=== PATIENT | male | born 1980 | race Caucasian/White ===

== ENCOUNTER 2016-11-27 20:57 | Inpatient (IN) | payer BC ==
[~2016-11-27] VITALS: Ht 170.2 cm; Wt 77.4 kg
[~2016-11-27 20:57] MED LIST: AZMACORT INH; EPIN0.3P3 SQ; HYDR-3989 PO; IBUP-1724 PO
--- OUTSIDE RECORDS SUMMARY | 2016-11-27 21:01 | XMS REPORT | Continuity of Care Document ---
Author Author [facility] Organization [facility] Address Unknown Phone Unavailable Support Name Relationship Address Phone JENNIFER GAONA APRN Caregiver [address] [place] [address] Unavailable JORGE PRESLEY MD Caregiver [address] [place] [address] Unavailable CLIVE AMBRIZ Next Of Kin [address] [place] [address] CP Insurance Providers Guarantor Devon Ambriz Address [address] [place] [address] CP Email [email or web address] Payer [employer] Other Policy Number [id number] Subscriber's Name Devon Ambriz Relationship 18 Self Group Number [id number] Problems Active Problems Medical Problem Onset Date Status Allergic reaction Unknown Acute Allergic reaction Unknown Acute Puncture wound of forearm with foreign body Unknown Acute Past Problems Medical Problem Onset Date Asthmatic bronchitis with acute exacerbation Unknown Foot pain, right Unknown Medications Current Home Medications Medication Dose Units Route Directions Days Qty Instructions Start Date Acetaminophen/Hydrocodone Bitart (Braman 5-325 Tablet) 5-325 Tablet 1 Tab Oral Every 6-8 Hours Prn as needed for Pain 2 Days [address] Adrian Cortés Web [employer] [facility] [address] [phone] 09/19/16 [place] 1 Puff Inhalation Daily 05/03/16 Epinephrine (Epipen 2-Garrett) 0.3 Mg/0.3 Ml Auto.injct 1 Unit Sub-Q Asd 03/08/16 Ibuprofen 200 Mg Tablet 1 Tab Oral Every 4 Hours as needed for Pain 09/19/16 Social History Social History Problem Response Recorded Date/Time Onset Date Status Hx Substance Use No 05/03/2016 7:30pm Not Applicable Not Applicable Hx Alcohol Use Y SOCIALLY 05/03/2016 7:30pm Not Applicable Not Applicable Has the pt used tobacco in the last 12 months Yes 03/10/2016 8:38am Not Applicable Not Applicable Tobacco Usage smoke 09/20/2014 3:43pm Not Applicable Not Applicable Query Response Start Date Stop Date Smoking Status Current every day smoker Hospital Discharge Instructions Current inpatient/outpatient. Discharge instructions are currently unavailable. Plan of Care Current inpatient/outpatient. The plan of care is currently unavailable Functional Status No functional status results. Allergies, Adverse Reactions, Alerts Allergen Type Severity Reaction Status Last Updated Penicillin Allergy Unknown Active 09/19/16 Immunizations Query Response on File Recorded Date/Time Hx Influenza Vaccination No 03/10/16 8:38am Hx Pneumococcal Vaccination No 03/10/16 8:38am Hx Tetanus, Diptheria, Pertussis Yes 09/20/14 3:49pm Hx Influenza Vaccination No 03/10/16 8:38am Hx Tetanus, Diptheria, Pertussis Yes 09/20/14 3:49pm Vital Signs Acute Vital Signs Vital Response Date/Time Temperature (Fahrenheit) 97.8 deg F (96.8 - 99.1) 09/19/2016 10:35am Temperature (Calculated Celsius) 36.31235 degrees C (36.0 - 37.3) 09/19/2016 10:35am Pulse Rate (adult) 78 bpm (60 - 100) 09/19/2016 10:35am Respiratory Rate 16 breaths/min (10 - 20) 09/19/2016 10:35am O2 Sat by Pulse Oximetry 96 % (90 - 100) 09/19/2016 10:35am Blood Pressure 122/72 mm Hg 09/19/2016 10:35am Height (Inches) 68.00 inches 09/19/2016 10:35am Weight (Kilograms) 79.900 kg 09/19/2016 10:35am Body Mass Index (BMI) 26.0 09/19/2016 10:35am Results No known relevant diagnostic tests, laboratory data and/or discharge summary. Procedures No known history of procedures. Encounters Encounter Location Arrival/Admit Date Discharge/Depart Date Attending Provider Registered Clinic [facility] 09/19/16 11:16am JENNIFER GAONA APRN Departed Emergency Room [facility] 09/19/16 10:27am 09/19/16 11: 01am JENNIFER GAONA APRN Departed Emergency Room [facility] 06/27/16 5:19pm 06/27/16 5: 40pm JENNIFER GAONA APRN
--- OUTSIDE RECORDS SUMMARY | 2016-11-27 21:01 | XMS REPORT | Continuity of Care Document ---
Author Author [facility] Organization [facility] Address Unknown Phone Unavailable Support Name Relationship Address Phone RAVI KIRKLAND MD Caregiver [facility] [address] [place] [address] Unavailable JORGE PRESLEY MD Caregiver [address] [place] [address] [phone] CLIVE AMBRIZ Next Of Kin [address] [place] [address] CP Insurance Providers Payer Name Policy Number Subscriber Name Relationship [employer] Other [id number] Devon Ambriz 01 Spouse Advance Directives Directive Response Recorded Date/Time Advanced Directives Type None 09/20/14 3:18pm Problems Medical Problems Problem Onset Date Status Puncture wound of forearm with foreign body Unknown Active Allergic reaction Unknown Active Allergic reaction Unknown Active Medications Medication Dose Route Sig Days/Qty Instructions Order Date Discontinued Date Status Cephalexin Monohydrate 500 Mg PO THREE TIMES A DAY 30 Qty 01/26/14 Active Hydrocodone Bit/Acetaminophen 1 Udtab PO FOUR TIMES DAILY For PAIN 30 Qty 01/26/14 Active Ranitidine HCl 150 Mg PO TWICE A DAY 30 Qty 09/20/14 Active Prednisone 10 Mg PO NOTE INSTRUCTIONS 30 Qty 4 daily x 3 days, 3 daily x3 days, 2 daily x 3 days, 1 daily 09/20/14 Active Azithromycin 250 Mg PO NOTE INSTRUCTIONS 6 Qty 09/20/14 Active Social History Social History Problem Response Recorded Date/Time Hx Alcohol Use Y WEEKLY 09/20/2014 3:49pm Tobacco Usage smoke 09/20/2014 3:43pm Query Response Start Date Stop Date Smoking Status Current every day smoker Hospital Discharge Instructions No hospital discharge instructions. Plan of Care No plan of care. Functional Status Query Response Date Recorded Physical Hygiene Self September 20, 2014 3:49pm Disabilities None September 20, 2014 3:49pm Devices Used None September 20, 2014 3:49pm Dressing Self September 20, 2014 3:49pm Ambulation Self September 20, 2014 3:49pm Diet Self September 20, 2014 3:49pm Mental Status Alert September 20, 2014 4:39pm Disabilities None September 20, 2014 3:49pm Devices Used None September 20, 2014 3:49pm Physical Hygiene Self September 20, 2014 3:49pm Dressing Self September 20, 2014 3:49pm Ambulation Self September 20, 2014 3:49pm Diet Self September 20, 2014 3:49pm Allergies, Adverse Reactions, Alerts Allergen Type Severity Reaction Status Last Updated No Known Allergies Active 09/20/14 Immunizations Name Given Type Hx Influenza Vaccination No Historical Hx Tetanus, Diptheria, Pertussis Yes Historical Hx Influenza Vaccination No Historical Hx Tetanus, Diptheria, Pertussis Yes Historical Vital Signs Acute Vital Signs Vital Response Date/Time Temperature (Fahrenheit) 97.4 deg F (96.8 - 99.1) Temperature (Calculated Celsius) 36.59180 degrees C (36.0 - 37.3) Pulse Rate (adult) 78 bpm (60 - 100) Respiratory Rate 20 breaths/min (10 - 20) O2 Sat by Pulse Oximetry 97 % (90 - 100) Blood Pressure 120/81 mm Hg Height 5 ft 7 in Weight 175 lb Body Mass Index 27.0 kg/m^2 Results No known relevant diagnostic tests, laboratory data and/or discharge summary. Procedures No known history of procedures. Encounters Encounter Location Date/Time Departed Emergency Room [facility] 09/20/14 3:15pm Recent Diagnosis
--- OUTSIDE RECORDS SUMMARY | 2016-11-27 21:01 | XMS REPORT | Continuity of Care Document ---
Author Author [facility] Organization [facility] Address Unknown Phone Unavailable Allergies Medications Problems Procedures Results Encounters ACCT No. Visit Date/Time Discharge Status Pt. Type Provider Facility Loc./Unit Complaint [id number] 12/09/2013 17:40:00 12/09/2013 23 :59:59 CLS Outpatient
[2016-11-27] MEDS ORDERED: [UNRECOGNIZED DRUG - CODE] PO (21:25)
[2016-11-27] MEDS ORDERED: ONDANSETRON 4mg/2ml INJECTION IV ONE (21:30)
[2016-11-27] MEDS ORDERED: NORMAL SALINE 1,000 ML IV ONE (21:30)
[2016-11-27] MEDS ORDERED: HYDROMORPHONE 2mg/ml INJECTION IV ONE ×2 (21:30→23:15)
[2016-11-27] MEDS ORDERED: IOHEXOL 300 MG/ML 100ml INJECTION ONE (21:34)
[2016-11-27] MEDS ORDERED: NORMAL SALINE 100 ML ONE (21:34)
[2016-11-27] MEDS ORDERED: SALINE FLUSH 10ml SYRINGE ONE (21:34)
--- NOTE | 2016-11-27 21:36 | ERPDOC ---
Departure Disposition Decision Date: Nov 27, 2016 Disposition Decision Time: 23:30 Disposition: 02 TO OBS [facility] Impression Impression Impression: Primary Impression: Pancreatitis Chronicity: acute Pancreatitis type: unspecified pancreatitis type Acute pancreatitis complication: no infection or necrosis Qualified Codes: K85.90 - Acute pancreatitis without necrosis or infection, unspecified Severity: Moderate Condition: Stable Seen By: Mid-level only Referrals: JORGE PRESLEY MD (Family) Problems/Meds/Labs Reviewed?: Yes Medications reviewed and manag: Yes Follow up care ordered?: Yes Mental Status: Alert HPI - Abdominal Pain General Chief Complaint: Abdominal Pain Stated Complaint: ABD PAIN, BACK PAIN Time Seen by Provider: 21:21 Source: patient History/Exam Limitations: no limitations HPI - Abdominal Pain Initial Comments He had onset of abdominal pain today around noon. It got much worse around 1600 and now he is having a hard time laying still due to the pain. Has never had pain like this in the past. Has not had any fever/chills or vomiting today. Has had 2 BM at home. Did not take anything for the pain at home prior to coming to ER. Occurred At: home Onset: Rapid Duration: 6-12 hrs (at noon today, 9 hours ago) Quality: sharpness Location: periumbilical, suprapubic Radiation: no radiation 1 - area of abdominal pain Associated Symptoms: back pain, DENIES: chest pain, diaphoresis, fatigue, fever /chills, heartburn, nausea/vomiting, rash, shortness of breath, swelling/mass in abdomen, syncope, weakness Hx of Similar Symptoms: No Allergies: Coded Allergies: Penicillins (Unverified Allergy, Unknown, 09/19/16) Past History Past Medical History Respiratory: asthma Surgical History Denies Surgeries Family History Family History: Negative Vaccines Hx Influenza Vaccination: No Hx Pneumococcal Vaccination: No Hx Tetanus, Diptheria, Pertuss: Yes Social History Does patient use chewing tobac: No # of Packs/Tins per Day: 0.5 # of Years: 7 Second Hand Exposure: No Substance Use Type: does not use Alcohol Intake: Does not drink Review of Systems Constitutional Constitutional: DENIES: chills, dizziness, fatigue, fever, weakness Cardiovascular Cardiac: DENIES: chest pain, orthopnea Rhythm/Rate: DENIES: irregular beat, palpitations Pulmonary Respiratory: DENIES: cough, dyspnea, sputum, tachypnea GI Upper Abdomen: pain, DENIES: nausea, vomiting Lower Abdomen: pain, DENIES: constipation, diarrhea General: DENIES: dysuria, frequency, urgency Integumentary Skin: DENIES: rash Neurological General: DENIES: headache, numbness, tingling, weakness Physical Exam General General Nourishment: well nourished, well developed, appears stated age, no acute distress, adult General Body Habitus: well groomed Vitals and Pain First Documented Vital Signs Date Time Temp Pulse Resp B/P Pulse Ox O2 Delivery O2 Flow Rate FiO2 11/27/16 21:09 98.2 76 20 144/96 98 Room Air Weight: Kilograms: 75.200 Height (feet): 5 Height (inches): 7.00 Triage Pain Scale: RN VS reviewed by Provider: Yes Normal Exams: Neck: Full range of motion, without adenopathy, JVD, bruits or thyromegaly Chest/Resp: Clear all ramos, with good airflow, and symmetry bilaterally CV: Regular rate and rhythm, without murmur or gallop, Pulses 2+ all extremities, capillary refill, <2 seconds all ext., no pedal edema noted Abdomen: Bowel sounds positive, non-distended, no hepatosplenomegaly, masses or bruits noted Lymphatic: No lymphadenopathy, or lymphedema noted Integumentary: No rashes, hives, or bruising noted Neurologic: Patient is alert, and oriented Psychiatric: Patient exhibits, appropriate attention, emotion and affect Abdomen Inspection: NOT FOUND: distention Palpation: FOUND: soft, tender (TTP in all quadrants of the abdomen with light touch), voluntary guarding, NOT FOUND: involuntary guarding, rebound Differential Diagnoses Considering: Appendicitis, Aortic Dissection, Biliary Colic, Bowel Obstruction , Cholecystitis, Constipation, Crohn's, Hepatitis, Pancreatitis, UTI Progress Results/Orders Orders Procedure Category Date Status Time Cbc W/Auto LAB 11/27/16 Complete Diff-Reflex Manual Cmp - Comprehensive LAB 11/27/16 Complete Metabolic Lipase LAB 11/27/16 Complete Iv Lock (Ed Only) EDM 11/27/16 Transmitted 21:23 Ct Abd/Pelvis CT 11/27/16 Taken W/Contrast Only 21:23 Normal Saline (Normal PHA 11/27/16 Complete Saline Iv) 21:30 Hydromorphone PHA 3/19/17 Complete (Dilaudid) 21:30 Ondansetron Inj PHA 11/27/16 Complete (Zofran) 21:30 Iohexol (Omnipaque) PHA 11/27/16 Complete 21:34 Normal Saline (Ns) PHA 11/27/16 Complete 21:34 Saline Flush (Iv PHA 11/27/16 Complete Flush) 21:34 Hydromorphone PHA 11/27/16 Complete (Dilaudid) 23:15 Lab Results Laboratory Tests Test 11/27/16 21:29 White Blood Count 13.1T/MM3 Red Blood Count 5.34M/MM3 Hemoglobin 16.0GM/DL Hematocrit 45.6% Mean Corpuscular Volume 85.4UM3 Mean Corpuscular Hemoglobin 30.0UUG Mean Corpuscular Hemoglobin Concent 35.1GM/DL RDW Standard Deviation 40.9FL Platelet Count 189T/MM3 Mean Platelet Volume 10.7UM3 Immature Granulocyte % (Auto) 0.3% Neutrophils (%) (Auto) 75.2% Lymphocytes (%) (Auto) 18.2% Monocytes (%) (Auto) 5.7% Eosinophils (%) (Auto) 0.4% Basophils (%) (Auto) 0.2% Absolute Immature Granulocyte (auto 0.04T/MM3 Absolute Neutrophils (auto) 9.8T/MM3 Absolute Lymphocytes (auto) 2.4T/MM3 Absolute Monocytes (auto) 0.8T/MM3 Absolute Eosinophils (auto) 0.1T/MM3 Absolute Basophils (auto) 0.0T/MM3 Turbidity < 20 Sodium Level 145MEQ/L Potassium Level 4.1MEQ/L Chloride Level 106MEQ/L Carbon Dioxide Level 26MEQ/L Anion Gap 13MEQ/L Blood Urea Nitrogen 10.0MG/DL Creatinine 1.0MG/DL Glomerular Filtration Rate Calc 85 BUN/Creatinine Ratio 10RATIO Glucose Level 123MG/DL Calculated Osmolality 279MOSM/KG Calcium Level 9.2MG/DL Total Bilirubin 0.70MG/DL Icterus Index < 2 Aspartate Amino Transf (AST/SGOT) 22U/L Alanine Aminotransferase (ALT/SGPT) 46U/L Alkaline Phosphatase 54U/L Total Protein 7.4G/DL Albumin 4.2G/DL Globulin 3.2G/DL Albumin/Globulin Ratio 1.3RATIO Lipase 3719U/L Chemistry Specimen Hemolysis < 15 Medications Current ED Medications Sodium Chloride (Normal Saline IV) 1,000 ml @ 1,000 mls/hr Q1H ONCE IV Last administered on 11/27/16 21:40; Start 11/27/16 at 21:30; Stop 11/27/16 at 22:29 ; Status DC Hydromorphone HCl (Dilaudid) 0.5 mg O ONCE IV Last administered on 11/27/16 21:40; Start 11/27/16 at 21:30; Stop 11/27/16 at 21:31; Status DC Ondansetron HCl (Zofran) 4 mg O ONCE IV Last administered on 11/27/16 21:40; Start 11/27/16 at 21:30; Stop 11/27/16 at 21:31; Status DC Iohexol 1 bottle 1 bottle STK-MED ONCE .ROUTE ; Start 11/27/16 at 21:34; Stop at 21:35; Status DC Sodium Chloride (NS) 100 ml @ As Directed STK-MED ONCE .ROUTE ; Start 11/27/16 at 21:34; Stop 11/27/16 at 21:35; Status DC Sodium Chloride (Iv Flush) 10 ml STK-MED ONCE .ROUTE ; Start 11/27/16 at 21:34; Stop 11/27/16 at 21:35; Status DC Hydromorphone HCl (Dilaudid) 0.5 mg O ONCE IV ; Start 11/27/16 at 23:15; Stop 11/27/16 at 23:16; Status DC Progress Progress WBC is 13.1 with 75 neutrophils. CMP is normal but lipase today is 3719. He denies any ETOH consumption and does still have his gallbladder. CT scan findings are consistent with pancreatitis but does not show any gallstones present. Discussed findings with Dr Sexton. He will admit OBS at this time. CT CT : Reason for Exam: abdominal pain CT: Abd/Pelvis IV contrast Interpretation: Abnormal (acute pancreatitis) MONROE FOWLER APRN Nov 27, 2016 21:36
[2016-11-27 21:44] LABS: BASOPHILS % (AUTO) 0.2 % (0-2); EOSINOPHILS # (AUTO) 0.1 T/MM3 (0-0.5); EOSINOPHILS % (AUTO) 0.4 % (0-4); HCT - HEMATOCRIT 45.6 % (41-53); IMMATURE GRANULOCYTE # (AUTO) 0.04 T/MM3 (0.00-0.03); IMMATURE GRANULOCYTE % (AUTO) 0.3 % (0.0-0.5); LYMPHOCYTES # (AUTO) 2.4 T/MM3 (1-4.8); LYMPHOCYTES % (AUTO) 18.2 % (23-45); MEAN CORPUSCULAR HGB CONC(MCHC 35.1 GM/DL (31-37); MEAN CORPUSCULAR VOLUME 85.4 UM3 (80-100); MEAN PLATELET VOLUME 10.7 UM3 (9.4-12.4); MONOCYTES # (AUTO) 0.8 T/MM3 (0-0.8); MONOCYTES % (AUTO) 5.7 % (0-9.0); NEUTROPHILS #(AUTO)-ABSOLUTE 9.8 T/MM3 (1.8-7.7); NEUTROPHILS % (AUTO) 75.2 % (33-66); RED BLOOD COUNT 5.34 M/MM3 (4.50-5.90); WBC - WHITE BLOOD COUNT 13.1 T/MM3 (4.5-11.0)
[2016-11-27 21:48] LABS: ALBUMIN 4.2 G/DL (3.5-5.0); ALBUMIN/GLOBULIN RATIO 1.3 RATIO (1.1-2.2); ALKALINE PHOSPHATASE 54 U/L (38-126); ALT (SGPT) 46 U/L (21-72); ANION GAP 13 MEQ/L (5-15); AST (SGOT) 22 U/L (17-59); BUN/CREATININE RATIO 10 RATIO (6-26); CALCIUM 9.2 MG/DL (8.4-10.2); CHLORIDE 106 MEQ/L (98-107); CO2 - CARBON DIOXIDE 26 MEQ/L (22-30); GLOMERULAR FILTRATION RATE 85; GLUCOSE 123 MG/DL (75-110); POTASSIUM 4.1 MEQ/L (3.6-5); SODIUM 145 MEQ/L (134-144); TOTAL PROTEIN 7.4 G/DL (6.3-8.2)
[2016-11-27 21:55] LABS: LIPASE 3719 U/L (23-300)
--- NOTE | 2016-11-27 22:07 | NUR ---
IMAGING PT TO IMAGING VIA CART AT THIS TIME
--- NOTE | 2016-11-27 22:18 | NUR ---
IMAGING PT RETURN TO ROOM VIA CART FROM IMAGING
--- OUTSIDE RECORDS SUMMARY | 2016-11-27 23:08 | XMS REPORT | Continuity of Care Document ---
Author Author [facility] Organization [facility] Address Unknown Phone Unavailable Allergies Medications Problems Procedures Results Encounters ACCT No. Visit Date/Time Discharge Status Pt. Type Provider Facility Loc./Unit Complaint [id number] 12/09/2013 17:40:00 12/09/2013 23 :59:59 CLS Outpatient
--- OUTSIDE RECORDS SUMMARY | 2016-11-27 23:08 | XMS REPORT | Continuity of Care Document ---
Author Author [facility] Organization [facility] Address Unknown Phone Unavailable Support Name Relationship Address Phone RAVI KIRKLAND MD Caregiver [facility] [address] [place] [address] Unavailable JORGE PRESLEY MD Caregiver [address] [place] [address] [phone] CLIVE AMBRIZ Next Of Kin [address] [place] [address] CP Insurance Providers Payer Name Policy Number Subscriber Name Relationship [employer] Other [id number] Devon Ambriz 01 Spouse Advance Directives Directive [...] F (96.8 - 99.1) Temperature (Calculated Celsius) 36.18539 degrees C (36.0 - 37.3) Pulse Rate [...] Encounters Encounter Location Date/Time Departed Emergency Room [facility] 09/20/14 3:15pm Recent Diagnosis
[2016-11-27] MEDS ORDERED: METOCLOPRAMIDE 10mg/2ml INJECTION IV PRN (23:30)
[2016-11-27] MEDS ORDERED: ONDANSETRON 4mg/2ml INJECTION IV PRN (23:30)
[2016-11-27] MEDS ORDERED: PROMETHAZINE 25 MG INJECTION IV PRN (23:30)
--- OUTSIDE RECORDS SUMMARY | 2016-11-27 23:41 | XMS REPORT | Continuity of Care Document ---
Author Author [facility] Organization [facility] Address Unknown Phone Unavailable Allergies Medications Problems Procedures Results Encounters ACCT No. Visit Date/Time Discharge Status Pt. Type Provider Facility Loc./Unit Complaint [id number] 12/09/2013 17:40:00 12/09/2013 23 :59:59 CLS Outpatient
--- OUTSIDE RECORDS SUMMARY | 2016-11-27 23:41 | XMS REPORT | Continuity of Care Document ---
Author Author [facility] Organization [facility] Address Unknown Phone Unavailable Support Name Relationship Address Phone RAVI KIRKLAND MD Caregiver [facility] [address] [place] [address] Unavailable JORGE PRESLEY MD Caregiver [address] [place] [address] [phone] CLIVE AMBRIZ Next Of Kin [address] [place] [address] CP Insurance Providers Payer Name Policy Number Subscriber Name Relationship [employer] Other [id number] Devon Ambriz 01 Spouse Advance Directives Directive [...] F (96.8 - 99.1) Temperature (Calculated Celsius) 36.96008 degrees C (36.0 - 37.3) Pulse Rate [...] Encounters Encounter Location Date/Time Departed Emergency Room [facility] 09/20/14 3:15pm Recent Diagnosis
[2016-11-28] VITALS (9 sets, daily range): BP systolic 109–126; BP diastolic 67–80; PULSE 58–76; RESP 12–65; TEMP 97.3–97.8; O2SAT 94–97; Ht 170.2 cm; Wt 77.4 kg
--- NOTE | 2016-11-28 00:05 | NUR ---
ADMITION PT ADINITED TO ROOM 158. BROUGHT TO ROOM VIA WHEELCHAIR. AT BEDSIDE.
--- NOTE | 2016-11-28 00:05 | NUR ---
ADMIT PT TO MEDICAL UNIT #[id number] VIA WHEEL CHAIR. REPORT PREVIOUSLY GIVEN TO DEANGELO KANG. RN TO ASSUME CARE IN ROOM WAITING FOR PT. PT TRANSFERRED FROM WHEEL CHAIR TO BED INDEPENDENTLY. GAIT STABLE, NO SIGN OF DISTRESS. AT SIDE.
[2016-11-28] MEDS: NORMAL SALINE 1,000 ML IV SCH ×5 (00:34→23:40)
[2016-11-28] MEDS: HYDROMORPHONE 2mg/ml INJECTION IV PRN ×8 (01:20→21:19)
--- NOTE | 2016-11-28 03:47 | NUR ---
PT IS ALERT AND ORIENTED. REPORTS PAIN 10/10 IN THE ABDOMEN, DILAUDID GIVEN AND EFFECTIVE . PT CURRENTLY SLEEPING. ABDOMEN NOT DISTENDED. VSS
[2016-11-28 05:55] LABS: BASOPHILS % (AUTO) 0.1 % (0-2); EOSINOPHILS # (AUTO) 0.1 T/MM3 (0-0.5); EOSINOPHILS % (AUTO) 1.2 % (0-4); HCT - HEMATOCRIT 44.8 % (41-53); HGB - HEMOGLOBIN 15.2 GM/DL (13.5-17.5); IMMATURE GRANULOCYTE # (AUTO) 0.02 T/MM3 (0.00-0.03); IMMATURE GRANULOCYTE % (AUTO) 0.2 % (0.0-0.5); LYMPHOCYTES # (AUTO) 2.1 T/MM3 (1-4.8); MEAN CORPUSCULAR HGB 29.3 UUG (26-34); MEAN CORPUSCULAR HGB CONC(MCHC 33.9 GM/DL (31-37); MEAN CORPUSCULAR VOLUME 86.5 UM3 (80-100); MEAN PLATELET VOLUME 10.6 UM3 (9.4-12.4); MONOCYTES # (AUTO) 0.7 T/MM3 (0-0.8); MONOCYTES % (AUTO) 6.2 % (0-9.0); NEUTROPHILS #(AUTO)-ABSOLUTE 8.7 T/MM3 (1.8-7.7); NEUTROPHILS % (AUTO) 74.3 % (33-66); RED BLOOD COUNT 5.18 M/MM3 (4.50-5.90); WBC - WHITE BLOOD COUNT 11.7 T/MM3 (4.5-11.0)
[2016-11-28 06:07] LABS: ALBUMIN 3.5 G/DL (3.5-5.0); ALBUMIN/GLOBULIN RATIO 1.3 RATIO (1.1-2.2); ALKALINE PHOSPHATASE 46 U/L (38-126); ALT (SGPT) 37 U/L (21-72); ANION GAP 10 MEQ/L (5-15); AST (SGOT) 18 U/L (17-59); BUN/CREATININE RATIO 9 RATIO (6-26); CALCIUM 8.2 MG/DL (8.4-10.2); CHLORIDE 107 MEQ/L (98-107); CO2 - CARBON DIOXIDE 27 MEQ/L (22-30); CREATININE 0.8 MG/DL (0.8-1.5); GLOMERULAR FILTRATION RATE 109; GLUCOSE 117 MG/DL (75-110); LIPASE 1814 U/L (23-300); POTASSIUM 4.1 MEQ/L (3.6-5); SODIUM 144 MEQ/L (134-144); TOTAL PROTEIN 6.1 G/DL (6.3-8.2)
--- NOTE | 2016-11-28 06:55 | HPPDOC ---
ESTELA GUERRIER MD 11/28/16 0652: HPI - Adult Date DATE: 11/28/16 TIME: 06:49 General Chief Complaint: abd pain History of Present Illness Very pleasant 36-year-old white male presents to the emergency room due to abdominal pain. It started around noon on November 27. He denies any recent illness, denies any on dietary discretion is any denies any alcohol use at all. His pain waxed and waned throughout the day but became increasingly severe to the point that 8 PM it was 10 out of 10. As I'm visiting with him after therapy with IV opioids he is down to a 3/10, he denies fever or chills. He has had a slight amount of vomiting. Recent bowel movements have been normal for him. Past Medical History Past Medical History History of colon polyps as his father has had polyposis , he has mild intermittent asthma. Surgical History Patient's Surgical History: Colonoscopy with polypectomy. Current Medications Home Meds Reported Medications Bismuth Subsalicylate (Kaopectate) 525 Mg/15 Ml Oral.susp, 15 ML PO PRN 11/27/16 Epinephrine (Epipen 2-Garrett) 0.3 Mg/0.3 Ml Auto.injct, 0.3 MG SQ PRN 03/08/16 Allergies: Coded Allergies: Penicillins (Unverified Allergy, Unknown, 11/28/16) Family History Family History: Father has had colon polyposis and had to have a colectomy, his mom and brother are healthy Social History Smoking Status: Current some day smoker ( smokes one half pack per day.) Does patient use chewing tobac: No # of Packs/Tins per Day: 0.5 # of Years: 7 Second Hand Exposure: No Substance Use Type: does not use Alcohol Intake: none, Does not drink, former alcohol drinker Marital Status: Sexuality: female partner Household Members: family, children Current Occupational Status: employed Advance Directives: No DPOA for Healthcare Only Review of Systems All Other Systems All Other Systems: Reviewed (remainder of 10-point ROS Neg.) Physical Exam General General Nourishment: well nourished, well developed, apparent age Vital Signs Vital Signs Date Time Temp Pulse Resp B/P Pulse Ox O2 Delivery O2 Flow Rate FiO2 11/28/16 04:52 97.4 65 18 125/69 97 Room Air Height (Feet): 5 Height (Inches): 7.00 Comments He appears in mild to moderate painful distress Eyes Brief: FOUND: PERRL, NOT FOUND: scleral icterus Respiratory Brief: FOUND: clear all ramos, equal bilaterally Cardiovascular (brief) Cardiac Brief: FOUND: regular rate, regular rhythm, NOT FOUND: pedal edema Abdomen (brief) Abdominal Brief: FOUND: BS normo active x4, soft, tender Comments his abdomen was moderately tender in the epigastric Neurologic RN Documented GCS Eye Opening: Verbal: Motor: Total: Laboratory Laboratory Tests Test 11/27/16 21:29 11/28/16 05:38 11/28/16 05:39 White Blood Count 13.1T/MM3 11.7T/MM3 Red Blood Count 5.34M/MM3 5.18M/MM3 Hemoglobin 16.0GM/DL 15.2GM/DL Hematocrit 45.6% 44.8% Mean Corpuscular Volume 85.4UM3 86.5UM3 Mean Corpuscular Hemoglobin 30.0UUG 29.3UUG Mean Corpuscular Hemoglobin Concent 35.1GM/DL 33.9GM/DL RDW Standard Deviation 40.9FL 41.0FL Platelet Count 189T/MM3 161T/MM3 Mean Platelet Volume 10.7UM3 10.6UM3 Immature Granulocyte % (Auto) 0.3% 0.2% Neutrophils (%) (Auto) 75.2% 74.3% Lymphocytes (%) (Auto) 18.2% 18.0% Monocytes (%) (Auto) 5.7% 6.2% Eosinophils (%) (Auto) 0.4% 1.2% Basophils (%) (Auto) 0.2% 0.1% Absolute Immature Granulocyte (auto 0.04T/MM3 0.02T/MM3 Absolute Neutrophils (auto) 9.8T/MM3 8.7T/MM3 Absolute Lymphocytes (auto) 2.4T/MM3 2.1T/MM3 Absolute Monocytes (auto) 0.8T/MM3 0.7T/MM3 Absolute Eosinophils (auto) 0.1T/MM3 0.1T/MM3 Absolute Basophils (auto) 0.0T/MM3 0.0T/MM3 Turbidity < 20 < 20 Sodium Level 145MEQ/L 144MEQ/L Potassium Level 4.1MEQ/L 4.1MEQ/L Chloride Level 106MEQ/L 107MEQ/L Carbon Dioxide Level 26MEQ/L 27MEQ/L Anion Gap 13MEQ/L 10MEQ/L Blood Urea Nitrogen 10.0MG/DL 7.0MG/DL Creatinine 1.0MG/DL 0.8MG/DL Glomerular Filtration Rate Calc 85 109 BUN/Creatinine Ratio 10RATIO 9RATIO Glucose Level 123MG/DL 117MG/DL Calculated Osmolality 279MOSM/KG 276MOSM/KG Calcium Level 9.2MG/DL 8.2MG/DL Total Bilirubin 0.70MG/DL 0.80MG/DL Icterus Index < 2 < 2 Aspartate Amino Transf (AST/SGOT) 22U/L 18U/L Alanine Aminotransferase (ALT/SGPT) 46U/L 37U/L Alkaline Phosphatase 54U/L 46U/L Total Protein 7.4G/DL 6.1G/DL Albumin 4.2G/DL 3.5G/DL Globulin 3.2G/DL 2.6G/DL Albumin/Globulin Ratio 1.3RATIO 1.3RATIO Lipase 3719U/L 1814U/L Chemistry Specimen Hemolysis < 15 < 15 Alcohol, Quantitative <10MG/DL Glucometer 119mg/dL Radiology to the abdomen showed some peripancreatic edema. Formal report is pending Assessment & Plan Problems: (1) Pancreatitis, acute Status: Acute Qualifiers: Pancreatitis type: unspecified pancreatitis type Assessment & Plan: no clear etiology at this point. Gallbladder sono and MRCP aggressive IV fluids at 250 mils per hour of normal saline. IV opioid therapy as needed. (2) Colon polyps Status: Chronic Code Status Full Code Hospital Course Summary Disclaimer The hospital course summary below is not to be considered part of the above Progress Note. WARD THAYER MD 11/28/16 1428: HPI - Adult General Chief Complaint: abdominal pain History of Present Illness As previously noted Devon is 36-year-old male who developed epigastric and mid abdominal abdominal pain around noon yesterday which persisted and intensified throughout the day. There is no accompanying nausea, vomiting, or diarrhea. He initially tried Pepto-Bismol and later Kaopectate without improvement. As pain intensified he tried inducing vomiting resulting in dry heaves but no improvement symptoms. By 8:00 in the evening pain was intense enough that he was unable to tolerate it at home and he presented to the emergency room. Patient had started to radiate to the low back and generalized to the lower abdomen at that point. IV narcotics in the ER help stabilize pain. He denies preceding fevers or chills and reports no one else at home has been ill. He has no history of gallstones and has had no recent alcohol ingestion indicating that his last beer was more than 6 weeks ago. ER evaluation included CT abdomen and laboratory data consistent with pancreatitis. Past history, family history, social history, and review of systems as noted although patient complains of headache this morning that he attributes to caffeine withdrawal and reports he's recently had some difficulty with urticaria which he believes is due to heat exposure. Past Medical History Current Medications Home Meds Reported Medications Bismuth Subsalicylate (Kaopectate) 525 Mg/15 Ml Oral.susp, 15 ML PO PRN 11/27/16 Epinephrine (Epipen 2-Garrett) 0.3 Mg/0.3 Ml Auto.injct, 0.3 MG SQ PRN 03/08/16 Allergies: Coded Allergies: Penicillins (Unverified Allergy, Unknown, 11/28/16) Assessment & Plan Problems: (1) Pancreatitis, acute Status: Acute Qualifiers: Pancreatitis type: unspecified pancreatitis type (2) Abdominal pain Status: Acute (3) Leukocytosis Status: Acute (4) Headache Status: Acute (5) Colon polyps Status: Chronic (6) Asthma, mild intermittent Onset Date: Unknown Status: Chronic Assessment EXAM General-temperature 97.7, blood pressure 126/74. Patient is alert and cooperative. NAD HEENT-PERRL, EOMI, conjunctiva clear, sclera anicteric, facial structure symmetric, oropharynx clear, neck supple without adenopathy Lungs-respirations nonlabored, good airflow, no wheezing present Cardiac-regular rhythm, S1-S2 Abd-soft but generalized tenderness on palpation with guarding, diminished bowel sounds Ext-without edema Skin-without rash Neuro-moving all extremities well, normal motor tone and power; sensation intact to light touch bilateral upper and lower extremities, cranial nerves II- 12 intact Psych-calm, cooperative, oriented 3 Dr. Guerrier's note reviewed, he should seen and examined with additions as noted above. CT of the abdomen/pelvis, gallbladder sonogram, and MRCP have all been reviewed by myself demonstrating pancreatic inflammation but no gallstones and biliary ductal pathology are present on any of the imaging. By history there is no recent alcohol use and patient denies binging during the basketball tournament. Alcohol level on admission was nondetectable. Liver enzymes are unremarkable and not suggestive of passed common duct stone. Triglycerides are pending. Patient is not on medications that are suspicious for triggering pancreatitis. At this time etiology of pancreatitis is unknown. Continue standard management with IV fluids, IV antiemetics and narcotics, and bowel rest. Clear liquids will be started as patient indicates he is beginning to experience some hunger. Currently I don't believe there is any indication for surgical involvement. Nicotine patch ordered and tobacco cessation counseled. Excedrin added as caffeine replacement. Plan/Intensity of Service Multiple x-rays reviewed, IV narcotics in use, high risk illness, laboratory data reviewed. DVT Prophylaxis: SCD'S Hospital Course Summary Hospital Course Summary 11/28/16 Admitted with acute abdominal pain, CT consistent with pancreatitis. Gallbladder sonogram and MRCP without evidence of biliary pathology. Managed with IV narcotics and antiemetics in conjunction with IV fluids. Clear liquids initiated. ESTELA GUERRIER MD Nov 28, 2016 06:52 WARD THAYER MD Nov 28, 2016 14:28
--- NOTE | 2016-11-28 08:15 | DI ---
Indication: ITS.REASON: abdominal pain PROCEDURE: CT ABD/PELVIS W/CONTRAST ONLY: Encounter: Initial Comparison: None Technique: Axial CT images were performed through the abdomen and pelvis after the administration of intravenous contrast. Coronal and sagittal two-dimensional reformats. Automated Exposure Control and Iterative Reconstruction dose reducing techniques were utilized. Contrast: Omnipaque 300 100 mL Findings: The lung bases are positive for mild infection, inflammation or atelectasis in the left lower lobe. The liver appears normal. Gallbladder is within normal limits. The spleen is unremarkable. There is inflammatory change and fluid surrounding the pancreatic head and body. The adrenal glands are normal. Kidneys are normal. No abdominal or pelvic lymphadenopathy. Bladder is normal. Prostate and rectum are unremarkable. No bowel obstruction. The appendix is normal. Bone windows are within normal limits for age. Impression: 1. Acute pancreatitis. 2. Left lower lobe opacity could be due to atelectasis or pneumonia. There is a preliminary report by [facility]. .
--- NOTE | 2016-11-28 10:31 | DI ---
Indication: ITS.REASON: IDIOPATHIC PANCREATITIS PROCEDURE: US ABDOMEN COMPLETE: Encounter: Initial Comparison: CT abdomen/pelvis dated November 27, 2016 Technique: Grayscale and color Doppler sonographic imaging of the abdomen was performed. Findings: Hepatic parenchyma is homogeneous without evidence for focal mass. The gallbladder is normal. There is no wall thickening, pericholecystic fluid, sonographic Grant's sign or cholelithiasis. Both the intra and extrahepatic biliary system are of normal caliber with the common duct measuring 5 mm in dimension. Pancreas is not well seen due to shadowing bowel gas. Both kidneys are present without collecting system dilatation. The right measures 10.9 cm in length and left measures 11.1 cm. The spleen is unremarkable. The visualized portions of the aorta and IVC are unremarkable. No free fluid. Impression: No acute disease process seen by ultrasound. .
--- NOTE | 2016-11-28 11:40 | DI ---
Indication: ITS.REASON: PANCREATITIS UNCLEAR ETIOLOGY PROCEDURE: MRI MRCP ABD W/O CONTRAST: Encounter: Initial Comparison: CT abdomen/pelvis dated November 27, 2016 Technique: Multiplanar multisequence MR imaging of the abdomen was performed without contrast. Coronal thick slab 3-D respiratory gated heavily T2-weighted MRCP imaging of the abdomen was also created with three-dimensional reconstructions. Findings: MRCP: Gallbladder is unremarkable. No gallstones identified. No bile duct dilatation. Common duct is normal in caliber without filling defect. No evidence of a mass or stricture. No pancreatic ductal dilatation. Abdomen: Liver is grossly normal. No bile duct dilatation or mass. The gallbladder, spleen, adrenal glands and kidneys are normal. Pancreatic inflammatory changes and peripancreatic fluid are better seen on the recent CT comparison study. No pancreatic mass seen on this noncontrast study. Impression: No acute abnormality seen. No clear etiology for the patient's pancreatitis. .
[2016-11-28] MEDS ORDERED: ACETAMINOPHEN 325 MG TABLET PO PRN (12:00)
--- NOTE | 2016-11-28 12:12 | NUR ---
JOEL CM VISITED PT. CM EXPLAINED ROLE AND PROVIDED CONTACT INFORMATION. PT PLANS TO RETURN HOME AT TIME OF D/C FROM [facility]. PT DENIES NEEDS. PT IS AWARE TO CONTACT CM IF NEEDS [facility].
[2016-11-28] MEDS: NICOTINE 14 MG PATCH TD SCH (13:30)
[2016-11-28] MEDS: APAP PO PRN (14:14)
[2016-11-28] MEDS: CAFFEINE PO PRN (14:14)
[2016-11-28] MEDS: ASA PO PRN (14:14)
--- NOTE | 2016-11-28 18:38 | NUR ---
Shift Summary Patient alert and oriented x3 today. VSS. On RA. Up ad melvin in room and walked in halls today. Patient tolerated clear liquid diet with no n/v/d. C/o headache and abdominal pain, PRN Dilaudid and Excedrin given. See eMar. IV infusing as ordered. SCD's in place. Patient reported adequate output today.
[2016-11-28] MEDS ORDERED: DiphenhydrAMINE 25 MG CAPSULE PO PRN (20:30)
--- NOTE | 2016-11-28 21:22 | NUR ---
STATUS PT RATING PAIN 7/10, DILAUDID 1 MG GIVEN PER ORDER. BENADRYL 25 MG GIVEN FOR INCREASED ITCHING.
[2016-11-29] VITALS (7 sets, daily range): BP systolic 114–134; BP diastolic 68–76; PULSE 64–87; RESP 14–18; TEMP 97.6–98.4; O2SAT 92–98
[2016-11-29 00:50] LABS: LDL CHOLESTEROL,CALCULATED 115.8 (66-159); RISK FACTOR 5.5 RATIO (0-5.0); VLDL CHOLESTEROL 22.2 MG/DL (0-28)
[2016-11-29] MEDS: HYDROMORPHONE 2mg/ml INJECTION IV PRN ×5 (03:08→18:34)
--- NOTE | 2016-11-29 03:19 | NUR ---
STATUS PT A/O X 3, UP AT [facility]. PT CALLED FOR PAIN MEDICATION. RATING HIS PAIN 6-7/10. STATES HE WAS SLEEPING WELL UNTIL THE PAIN STARTED.
[2016-11-29 04:58] LABS: BASOPHILS % (AUTO) 0.3 % (0-2); EOSINOPHILS # (AUTO) 0.4 T/MM3 (0-0.5); EOSINOPHILS % (AUTO) 3.9 % (0-4); HCT - HEMATOCRIT 42.1 % (41-53); HGB - HEMOGLOBIN 14.1 GM/DL (13.5-17.5); IMMATURE GRANULOCYTE # (AUTO) 0.01 T/MM3 (0.00-0.03); IMMATURE GRANULOCYTE % (AUTO) 0.1 % (0.0-0.5); LYMPHOCYTES # (AUTO) 2.3 T/MM3 (1-4.8); LYMPHOCYTES % (AUTO) 23.6 % (23-45); MEAN CORPUSCULAR HGB 29.4 UUG (26-34); MEAN CORPUSCULAR HGB CONC(MCHC 33.5 GM/DL (31-37); MEAN CORPUSCULAR VOLUME 87.9 UM3 (80-100); MEAN PLATELET VOLUME 11.1 UM3 (9.4-12.4); MONOCYTES # (AUTO) 0.8 T/MM3 (0-0.8); MONOCYTES % (AUTO) 8.2 % (0-9.0); NEUTROPHILS #(AUTO)-ABSOLUTE 6.3 T/MM3 (1.8-7.7); NEUTROPHILS % (AUTO) 63.9 % (33-66); RED BLOOD COUNT 4.79 M/MM3 (4.50-5.90); WBC - WHITE BLOOD COUNT 9.8 T/MM3 (4.5-11.0)
[2016-11-29 05:16] LABS: ANION GAP 5 MEQ/L (5-15); BUN/CREATININE RATIO 6 RATIO (6-26); CALCIUM 8.5 MG/DL (8.4-10.2); CHLORIDE 107 MEQ/L (98-107); CO2 - CARBON DIOXIDE 30 MEQ/L (22-30); CREATININE 0.9 MG/DL (0.8-1.5); GLOMERULAR FILTRATION RATE 95; GLUCOSE 88 MG/DL (75-110); MAGNESIUM 1.9 MG/DL (1.6-2.3); POTASSIUM 3.9 MEQ/L (3.6-5); SODIUM 142 MEQ/L (134-144)
--- NOTE | 2016-11-29 07:43 | NUR ---
STATUS PT A/O X 3. WATCHING TV AND VISITING WITH PARENTS. ASKED FOR PAIN MEDICATION X 2. STATES FEELING BETTER THEN BEFORE. UP AT [facility], GAIT IS STEADY. CALL LIGHT WITHIN REACH.
[2016-11-29] MEDS: NICOTINE PATCH REMOVAL TD SCH (08:27)
[2016-11-29] MEDS: NORMAL SALINE 1,000 ML IV SCH ×6 (08:28→23:30)
--- NOTE | 2016-11-29 08:29 | NUR ---
NICOTINE PATCH REMOVAL was supposed to remove a nicotine patch. this nurse did not remove a nicotine patch, could not find it on pt. pt stated he took it off when he took a shower.
--- NOTE | 2016-11-29 16:47 | NUR ---
STATUS pt is alert and oriented X3. pt has had some pain and was given prn pain meds as charted. pt gets up ad melvin. pt is on room air. pt was hungry and said DrMariaelena was going to changed his diet. talked with Dr. Salazar and she said he could have a bland diet. diet order was put in. talked with pt about taking it slow because lipase was over 1800 yesterday and a lipase was not drawn today. explained if the gut is fed to early it becomes angry and pain will increase. pt stated he could take the pain meds sooner than he does but he wants to go home. explained to pt we understood he wants to go home but our goal is to move forward not backward. pt ended up ordering jello and said maybe later he would order toast or order toast in the morning for breakfast. pt has ambulated in the [place] this shift. pt has visited with company this shift. pt resting in bed. call light within reach. will continue to monitor pt.
[2016-11-29] MEDS: ASA PO PRN (18:35)
[2016-11-29] MEDS: APAP PO PRN (18:35)
[2016-11-29] MEDS: CAFFEINE PO PRN (18:35)
[2016-11-29] MEDS ORDERED: ALBUTEROL INH.SOLN. 2.5mg/3ml (0.083%) Neb. AEROSOL PRN (18:45)
--- NOTE | 2016-11-29 18:53 | PNPDOC ---
Subjective Date DATE: 11/29/16 TIME: 18:42 Subjective Devon reports ongoing abdominal pain although it's not as intense as it was on presentation. He's had no nausea or vomiting and has tolerated clear liquids without difficulty. He's had some itching for which Benadryl was initiated overnight. There is no rash and he denied fever. He's had some cough which he attributes to asthma. He is ambulating to and from the bathroom without difficulty. Denies headache today. Objective Vital Signs Vital signs Vital Signs Date Time Temp Pulse Resp B/P Pulse Ox O2 Delivery O2 Flow Rate FiO2 11/29/16 15:35 16 11/29/16 15:33 98.0 71 118/69 95 Room Air I/O 4679/output unrecorded oral intake yesterday 470 mL EXAM General-NAD, alert, appears much better than yesterday HEENT-sclera anicteric, conjunctiva clear, oral membranes clear Lungs-respirations nonlabored, good airflow, breath sounds clear and without wheezing Cardiac-regular rhythm, S1-S2-no tachycardia present Abd-soft, mild tenderness present right upper and left upper quadrants but no guarding, soft bowel sounds Ext-without edema Neuro-moving all extremities well/spontaneously Psych-euthymic, interacts appropriately Height (Feet): 5 Height (Inches): 7.00 Weight (Kilograms): 78.100 Laboratory Laboratory Laboratory Tests 11/27/16 21:29 11/28/16 05:38 11/29/16 04:20 Laboratory Tests 11/27/16 21:29 11/28/16 05:38 11/29/16 04:20 Assessment & Plan Problems: (1) Pancreatitis, acute Status: Acute Qualifiers: Pancreatitis type: unspecified pancreatitis type (2) Abdominal pain Status: Acute (3) Leukocytosis Status: Acute (4) Headache Status: Acute (5) Colon polyps Status: Chronic (6) Asthma, mild intermittent Onset Date: Unknown Status: Chronic Assessment Abdominal examination improved today, Devon advised diet can be advanced to bland later today if he continues to tolerate liquids through the early part of the day. Reassess liver enzymes and lipase tomorrow. Triglycerides normal. Decrease IV fluids, discontinue [id number] normal. [place] added as oral alternative for pain control. Albuterol treatments ordered if needed. Headache free today. Pruritus adequately controlled with Benadryl. Plan/Intensity of Service Laboratory data reviewed, continued use of IV narcotics Code Status Full Code Hospital Course Summary Disclaimer The hospital course summary below is not to be considered part of the above Progress Note. Hospital Course Summary 11/28/16 Admitted with acute abdominal pain, CT consistent with pancreatitis. Gallbladder sonogram and MRCP without evidence of biliary pathology. Managed with IV narcotics and antiemetics in conjunction with IV fluids. Clear liquids initiated. 11/29-Martin Abdominal examination improved today, Devon advised diet can be advanced to bland later today if he continues to tolerate liquids through the early part of the day. Reassess liver enzymes and lipase tomorrow. Triglycerides normal. Decrease IV fluids, discontinue [id number] normal. [place] added as oral alternative for pain control. Albuterol treatments ordered if needed. Headache free today. Pruritus adequately controlled with Benadryl. WARD THAYER MD Nov 29, 2016 18:47
[2016-11-30 00:01] VITALS: BP 119/68; PULSE 52; RESP 14; TEMP 96.6; O2SAT 96
[2016-11-30] MEDS: HYDROMORPHONE 2mg/ml INJECTION IV PRN (00:08)
[2016-11-30 04:00] VITALS: BP 119/68; PULSE 55; RESP 14; TEMP 97.2; O2SAT 97
--- NOTE | 2016-11-30 04:59 | NUR ---
Shift Summary: Pt is a&o. Pt remains on room air all throughout the shift. Pt c/o pain and given PRN Pain meds as charted. Pt is pleasant and cooperative. Pt is up most of the night and states he has only slept 1 hour during the night. Pt states he never sleeps very much and that is normal for him. Pt does not seem tired of fatigued. Pt states he is ready to get "out of here and go home." Pt is up ad melvin and reports good urinary output. Pt resting in bed playing on electronic device at this time. VS stable. Will continue to monitor.
[2016-11-30 05:28] LABS: ALBUMIN 3.5 G/DL (3.5-5.0); ALBUMIN/GLOBULIN RATIO 1.2 RATIO (1.1-2.2); ALKALINE PHOSPHATASE 51 U/L (38-126); ALT (SGPT) 35 U/L (21-72); ANION GAP 9 MEQ/L (5-15); AST (SGOT) 18 U/L (17-59); BUN/CREATININE RATIO 6 RATIO (6-26); CALCIUM 9.1 MG/DL (8.4-10.2); CHLORIDE 105 MEQ/L (98-107); CO2 - CARBON DIOXIDE 30 MEQ/L (22-30); CREATININE 0.8 MG/DL (0.8-1.5); GLOMERULAR FILTRATION RATE 109; GLUCOSE 81 MG/DL (75-110); LIPASE 146 U/L (23-300); POTASSIUM 3.8 MEQ/L (3.6-5); SODIUM 144 MEQ/L (134-144); TOTAL PROTEIN 6.5 G/DL (6.3-8.2)
[2016-11-30 08:00] VITALS: BP 120/70; PULSE 53; RESP 16; TEMP 96.5; O2SAT 97
--- NOTE | 2016-11-30 08:00 | NUR ---
Received report Patient is alert and oriented. Denies any concerns this morning. No Abdominal pain reported. RA. VSS. NS running at 50ml/hr.
[2016-11-30] MEDS: NORMAL SALINE 1,000 ML IV SCH (08:10)
[2016-11-30] MEDS: NICOTINE 14 MG PATCH TD SCH (08:25)
[2016-11-30] MEDS: NICOTINE PATCH REMOVAL TD SCH (08:25)
[2016-11-30] MEDS ORDERED: HYDR-4072 PO (09:50)
--- NOTE | 2016-11-30 09:53 | NUR ---
CM CM VISITED PT. PT IS EXCITED THAT HE IS GOING HOME TODAY. PT DENIES NEEDS. PT IS AWARE TO CONTACT CM IF NEEDS [facility].
--- NOTE | 2016-11-30 10:45 | NUR ---
Discharged Patient discharge and medication instructions given. No questions asked. Patient walks to private vehicle accompanied by family and staff. [place] script with patient.
--- NOTE | 2016-11-30 17:40 | DSPDOC ---
General Date Date DATE: 11/30/16 TIME: 17:29 Attending Physician Jessy Salazar MD Admitting Physician Jessy Salazar MD Consulting Physician Admitting Diagnosis acute pancreatitis Discharge Diagnosis 1. Acute pancreatitis 2. Mild intermittent asthma 3. Colonic polyps Laboratory Laboratory Tests Test 11/29/16 07:10 11/29/16 11:28 11/29/16 17:50 11/29/16 19:44 Glucometer 71mg/dL (75-110) 91mg/dL (75-110) 107mg/dL (75-110) 102mg/dL (75-110) Test 11/30/16 03:24 Turbidity < 20 (0-20) Sodium Level 144MEQ/L (134-144) Potassium Level 3.8MEQ/L (3.6-5) Chloride Level 105MEQ/L (98-107) Carbon Dioxide Level 30MEQ/L (22-30) Anion Gap 9MEQ/L (5-15) Blood Urea Nitrogen 5.0MG/DL (9-20) Creatinine 0.8MG/DL (0.8-1.5) Glomerular Filtration Rate Calc 109 BUN/Creatinine Ratio 6RATIO (6-26) Glucose Level 81MG/DL (75-110) Calculated Osmolality 273MOSM/KG (261-280) Calcium Level 9.1MG/DL (8.4-10.2) Total Bilirubin 1.00MG/DL (0.20-1.30) Icterus Index < 2 (0-7) Aspartate Amino Transf (AST/SGOT) 18U/L (17-59) Alanine Aminotransferase (ALT/SGPT) 35U/L (21-72) Alkaline Phosphatase 51U/L (38-126) Total Protein 6.5G/DL (6.3-8.2) Albumin 3.5G/DL (3.5-5.0) Globulin 3.0G/DL (2.4-3.6) Albumin/Globulin Ratio 1.2RATIO (1.1-2.2) Lipase 146U/L (23-300) Chemistry Specimen Hemolysis < 15 (0-25) On admission white count was 13.1 with hemoglobin 16.0, liver enzymes unremarkable and lipase 3719. Total cholesterol 169, triglycerides 111, LDL 116, HDL [address] of the abdomen and pelvis on 11/27 revealed gallbladder to be normal and inflammatory change with fluids running the pancreatic head and body consistent with pancreatitis. Abdominal ultrasound on 11/28 demonstrated no hepatic abnormalities or focal mass , there was no gallbladder wall thickening, para cholecystic fluid, cholelithiasis, or sonographic Grant sign. Intra-and extrahepatic biliary ducts were normal with common duct 5 mm. Remainder of abdominal exam was unremarkable. MRCP on 11/28 again demonstrated no abnormalities in the gallbladder or biliary ducts. Liver was grossly normal. Inflammatory changes around the pancreas were better seen on CT per report. History of Present Illness Devon is 36-year-old male who developed epigastric and mid abdominal abdominal pain around noon yesterday which persisted and intensified throughout the day. There is no accompanying nausea, vomiting, or diarrhea. He initially tried Pepto -Bismol and later Kaopectate without improvement. As pain intensified he tried inducing vomiting resulting in dry heaves but no improvement symptoms. By 8:00 in the evening pain was intense enough that he was unable to tolerate it at home and he presented to the emergency room. Patient had started to radiate to the low back and generalized to the lower abdomen at that point. IV narcotics in the ER help stabilize pain. He denies preceding fevers or chills and reports no one else at home has been ill. He has no history of gallstones and has had no recent alcohol ingestion indicating that his last beer was more than 6 weeks ago. ER evaluation included CT abdomen and laboratory data consistent with pancreatitis. Hospital Course Was admitted to the hospitalist service and treated with IV fluids in conjunction with IV antiemetics and IV narcotics. Bowel rest was initiated. Pancreatitis was diagnosed on admission by CT and elevated lipase. Subsequent imaging by ultrasound and MRCP did not reveal structural abnormalities or obstructive pathology as inciting event. Patient denied recent alcohol ingestion and alcohol level on presentation was undetectable. Triglyceride level was unremarkable and he is on no home medications that are suspicious. Symptoms improved progressively over the next 48 hours. He was started on clear liquids on 11/28 with diet advanced the following day. [place] was started for pain control as an alternative to iodine Dilaudid on the with continued good pain control. On the first hospital day the patient complained of headache which he attributed to caffeine withdrawal, this was treated with Excedrin and resumption of liquids without recurrence. Asthma was asymptomatic throughout the hospital stay. On 11/30 Devon reported feeling significantly improved. He denied dyspnea and had virtually no abdominal pain. He was tolerating a regular diet without recurrent nausea or increased abdominal pain. He had not required any IV narcotics in over 15 hours at the time of assessment. Abdominal examination was unremarkable with only minimal tenderness on deep palpation in the epigastrium. Respirations are nonlabored. Patient is felt stable for discharge at this time. He was advised to avoid alcohol and to limit fatty foods. I've asked that he follow up with Dr. Presley in approximately one week for general reassessment. Problems: (1) Pancreatitis, acute Status: Acute (2) Abdominal pain Status: Acute (3) Leukocytosis Status: Acute (4) Headache Status: Acute (5) Colon polyps Status: Chronic (6) Asthma, mild intermittent Onset Date: Unknown Status: Chronic Code Status Full Code Home Meds Active Scripts Hydrocodone/Acetaminophen (Hydrocodon-Acetaminoph 7.5-325) 7.5-325 Tablet, 1 TAB PO QID Y for PAIN, #20 TAB Prov:JESSY SALAZAR MD 11/30/16 Reported Medications Bismuth Subsalicylate (Kaopectate) 525 Mg/15 Ml Oral.susp, 15 ML PO PRN 11/27/16 Epinephrine (Epipen 2-[place]rett) 0.3 Mg/0.3 Ml Auto.injct, 0.3 MG SQ PRN 03/08/16 Face to Face Encounter I met with patient on the day of dismissal and discussed follow up appointments , medications, and safety plan. Discharge Disposition home Copies To 1: JORGE PRESLEY MD, ROBERTA L MD Nov 30, 2016 17:38
== END 2016-11-30 10:45 | disposition home or self-care (01) | DRG 440 ==
LOC: ED 20:57 → EDHOLD 23:33 → MED 11-28 00:05 → SRG 11-28 10:19 → MED 11-28 10:19
PROVIDERS: ADMIT Pediatrics; ATTEND Internal Medicine
DX: K85.90 Acute pancreatitis without necrosis or infection, unspecified (principal); K63.5 Polyp of colon; J45.20 Mild intermittent asthma, uncomplicated; R51 Headache; F17.210 Nicotine dependence, cigarettes, uncomplicated
CPT/HCPCS: 36415; 80048; 80053; 80061; 80307; 82948; 83690; 83735; 85025; 96361; 96374; 96375; 99406